=== PATIENT | male | born 1995 | race African-American/Black ===

== ENCOUNTER 2017-03-12 08:32 | Emergency (ER) | payer SELFPAY ==
[~2017-03-12] VITALS: Ht 167.6 cm; Wt 75.0 kg
[~2017-03-12 08:32] MED LIST: IBUP600 PO
[2017-03-12 08:34] VITALS: BP 146/94; PULSE 82; RESP 16; TEMP 97.6; O2SAT 98
[2017-03-12] MEDS ORDERED: SODIUM CHLORIDE 0.9% FLUSH 10 ML FLUSH IVF PRN (09:00)
[2017-03-12] MEDS ORDERED: KETOROLAC TROMETHAMINE 60 MG/2 ML (IM) VIAL IM ONE (09:00)
[2017-03-12 09:16] VITALS: BP 131/72; PULSE 85
--- NOTE | 2017-03-12 09:28 | RADRPT ---
EXAM DATE/TIME: 03/12/2017 09:13 [place] COMPARISON: No previous studies available for comparison. INDICATIONS : Chest pain. MEDICAL HISTORY : None. SURGICAL HISTORY : None. ENCOUNTER: Initial ACUITY: 1 day PAIN SCORE: 5/10 LOCATION: Bilateral chest FINDINGS: PA and lateral views of the chest demonstrate the lungs to be symmetrically aerated without evidence of mass, infiltrate or effusion. The cardiomediastinal contours are unremarkable. Osseous structure s are intact. CONCLUSION: No acute disease. Say Knutson MD on March 12, 2017 at 9:23 Board Certified Radiologist. This report was verified electronically.
[2017-03-12 09:40] LABS: AUTOMATED NEUTROPHIL # 3.6 TH/MM3 (1.8-7.7); BASOPHIL # 0.1 TH/MM3 (0-0.2); BASOPHIL % 0.7 % (0.0-2.0); EOSINOPHIL # 0.2 TH/MM3 (0-0.4); HEMATOCRIT 43.8 % (39.0-51.0); HEMO FLAGS DIFF FINAL; LYMPH % 34.2 % (9.0-44.0); LYMPHOCYTE # 2.5 TH/MM3 (1.0-4.8); MEAN CELL VOLUME 86.4 FL (80.0-100.0); MEAN CORPUSCULAR HEMOGLOBIN 29.5 PG (27.0-34.0); MEAN CORPUSCULAR HGB CONC 34.1 % (32.0-36.0); MONO % 12.9 % (0.0-8.0); NEUT % 49.2 % (16.0-70.0); PLATELET COUNT 259 TH/MM3 (150-450); RED BLOOD COUNT 5.07 MIL/MM3 (4.50-5.90); RED CELL DISTRIBUTION WIDTH 12.3 % (11.6-17.2); WHITE BLOOD COUNT 7.3 TH/MM3 (4.0-11.0)
[2017-03-12 09:54] LABS: APTT (PATIENT) 26.5 SEC (24.3-30.1); PROTHROMBIN TIME - PATIENT 10.8 SEC (9.8-11.6)
[2017-03-12 10:02] LABS: ALT (GPT) 25 U/L (12-78); ANION GAP 7 MEQ/L (5-15); AST (GOT) 20 U/L (15-37); BICARBONATE 26.3 MEQ/L (21.0-32.0); BLOOD UREA NITROGEN 14 MG/DL (7-18); CHLORIDE 107 MEQ/L (98-107); GLOMERULAR FILTRATION RATE 94 ML/MIN (>89); SODIUM (NA) 140 MEQ/L (136-145)
[2017-03-12 10:06] LABS: ALKALINE PHOSPHATASE 80 U/L (45-117); TOTAL BILIRUBIN ADULT 0.4 MG/DL (0.2-1.0)
--- NOTE | 2017-03-12 10:28 | PD ---
HPI Chief Complaint: Chest Pain Time Seen by Provider: 08:52 Travel History International Travel<30 days: No Contact w/Intl Traveler<30days: No Traveled to known affect area: No History of Present Illness HPI Patient is a 22-year-old male comes in complaining of chest pain. He says the pain is mostly on the right side, and feels like a muscle strain. He says the pain is worse with movement. He denies any shortness of breath, nausea, fever, chills. He denies cough or cold. 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 He says he has had this once before in the past and it resolved. He says he was told it was a muscle issue. He denies any cocaine or stimulant use. He denies family history of early cardiac . PFSH Past Medical History Developmental Delay: No Diminished Hearing: No Immunizations Current: Yes Tetanus Vaccination: < 5 Years Influenza Vaccination: Yes Past Surgical History Endocrine Surgery: Yes Social History Alcohol Use: No Tobacco Use: No Substance Use: No Allergies-Medications (Allergen,Severity, Reaction): Coded Allergies: No Known Allergies (Verified , 05/19/14) Reported Meds & Prescriptions Reported Meds & Active Scripts Active Motrin 600 Mg Tab (Ibuprofen) 600 Mg Tab 600 Mg PO Q6H PRN 7 Days Review of Systems Except as stated in HPI: all other systems reviewed are Neg General / Constitutional: No: Fever, Chills Eyes: No: Blurred Vision HENT: No: Headaches, Lightheadedness Cardiovascular: Positive: Chest Pain or Discomfort Respiratory: No: Cough, Shortness of Breath Gastrointestinal: No: Nausea, Vomiting Musculoskeletal: Positive: Pain, No: Myalgias Skin: No Rash, No Change in Pigmentation Neurologic: No: Weakness, Dizziness Physical Exam Narrative GENERAL: Awake and alert, in no acute distress. SKIN: Focused skin assessment warm/dry. HEAD: Atraumatic. Normocephalic. EYES: Pupils equal and round. No scleral icterus. EOMI ENT: Mucous membranes pink and moist. NECK: Trachea midline. No JVD. CARDIOVASCULAR: Regular rate and rhythm. No murmur appreciated. No chest wall tenderness. RESPIRATORY: No accessory muscle use. Clear to auscultation. Breath sounds equal bilaterally. GASTROINTESTINAL: Abdomen soft, non-tender, nondistended. MUSCULOSKELETAL: No obvious deformities. No clubbing. No cyanosis. No edema. NEUROLOGICAL: Awake and alert. No obvious cranial nerve deficits. Motor grossly within normal limits. Normal speech. PSYCHIATRIC: Appropriate mood and affect; insight and judgment normal. Data Data Last Documented VS Vital Signs Date Time Temp Pulse Resp B/P Pulse Ox O2 Delivery O2 Flow Rate FiO2 03/12/17 10:41 84 14 128/71 99 03/12/17 09:16 Room Air 03/12/17 08:34 97.6 Orders Electrocardiogram (03/12/17 08:59) Basic Metabolic Panel (Bmp) (03/12/17 08:59) Complete Blood Count With Diff (03/12/17 08:59) Comprehensive Metabolic Panel (03/12/17 08:59) D-Dimer (03/12/17 08:59) Prothrombin Time / Inr (Pt) (03/12/17 08:59) Act Partial Throm Time (Ptt) (03/12/17 08:59) Troponin I (03/12/17 08:59) Ecg Monitoring (03/12/17 08:59) Bilateral Bp Monitoring (03/12/17 08:59) Iv Access Insert/Monitor (03/12/17 08:59) Oximetry (03/12/17 08:59) Sodium Chloride 0.9% Flush (Ns Flush) (03/12/17 09:00) Chest, Pa & Lat (03/12/17 08:59) Ketorolac Inj (Toradol Inj) (03/12/17 09:00) Labs Laboratory Tests Test 03/12/17 09:10 White Blood Count 7.3 TH/MM3 Red Blood Count 5.07 MIL/MM3 Hemoglobin 14.9 GM/DL Hematocrit 43.8 % Mean Corpuscular Volume 86.4 FL Mean Corpuscular Hemoglobin 29.5 PG Mean Corpuscular Hemoglobin 34.1 % Concent Red Cell Distribution Width 12.3 % Platelet Count 259 TH/MM3 Mean Platelet Volume 8.0 FL Neutrophils (%) (Auto) 49.2 % Lymphocytes (%) (Auto) 34.2 % Monocytes (%) (Auto) 12.9 % Eosinophils (%) (Auto) 3.0 % Basophils (%) (Auto) 0.7 % Neutrophils # (Auto) 3.6 TH/MM3 Lymphocytes # (Auto) 2.5 TH/MM3 Monocytes # (Auto) 0.9 TH/MM3 Eosinophils # (Auto) 0.2 TH/MM3 Basophils # (Auto) 0.1 TH/MM3 CBC Comment DIFF FINAL Differential Comment Prothrombin Time 10.8 SEC Prothromb Time International 1.0 RATIO Ratio Activated Partial 26.5 SEC Thromboplast Time D-Dimer Quantitative (PE/DVT) 0.25 MG/L FEU Sodium Level 140 MEQ/L Potassium Level 4.0 MEQ/L Chloride Level 107 MEQ/L Carbon Dioxide Level 26.3 MEQ/L Anion Gap 7 MEQ/L Blood Urea Nitrogen 14 MG/DL Creatinine 1.18 MG/DL Estimat Glomerular Filtration 94 ML/MIN Rate Random Glucose 91 MG/DL Calcium Level 9.2 MG/DL Total Bilirubin 0.4 MG/DL Aspartate Amino Transf 20 U/L (AST/SGOT) Alanine Aminotransferase 25 U/L (ALT/SGPT) Alkaline Phosphatase 80 U/L Troponin I LESS THAN 0.02 NG/ML Total Protein 7.7 GM/DL Albumin 4.0 GM/DL [facility] Medical Decision Making Medical Screen Exam Complete: Yes Emergency Medical Condition: Yes Medical Record Reviewed: Yes Interpretation(s) ECG shows ECG shows sinus bradycardia at 56, no ST elevation or depression, normal intervals. Differential Diagnosis Costochondritis versus pneumothorax versus pneumonia versus PE Narrative Course Patient is a 22-year-old male comes in complaining of chest pain. Exam shows no acute abnormalities. IV established, labs sent. Troponin and d-dimer are negative. All other labs are within normal limits. ECG shows no signs of ischemia. Chest x-ray shows no acute abnormalities. Patient only has pain with movement. This is very likely musculoskeletal. Patient given Toradol for pain. Will be discharged, advised to take ibuprofen as needed for pain. Advised follow-up with a primary doctor. Her turn to the ED as needed for any worsening symptoms. Diagnosis Primary Impression: Chest wall pain Referrals: [facility] call for appointment Patient Instructions: Chest Wall Pain (ED), General Instructions Additional Instructions: Take Ibuprofen for pain. follow up with a primary care doctor. Return to the ED as needed for any worsening symptoms. Avoid smoking and any drug use. Disposition: 01 DISCHARGE HOME Condition: Stable Nivia Bowens MD March 12, 2017 10:28
[2017-03-12 10:41] VITALS: BP 128/71
--- NOTE | 2017-03-13 11:30 | EKG ---
Date Performed: 03/12/2017 Time Performed: 09:29:23 PTAGE: 22 years EKG: SINUS BRADYCARDIA MINIMAL VOLTAGE CRITERIA FOR LVH, CONSIDER NORMAL VARIANT BORDERLINE ECG NO PREVIOUS TRACING DOCTOR: Yuri Smith Interpretating Date/Time 03/13/2017 11:22:38
== END 2017-03-12 10:42 | disposition home or self-care (01) ==
LOC: NEPC 08:32
DX: R07.89 Other chest pain (principal)
CPT/HCPCS: 71020; 80053; 84484; 85025; 85379; 85610; 85730; 93005; 96372; 99284; J1885

== ENCOUNTER 2017-10-07 15:28 | Emergency (ER) | payer SELFPAY ==
[~2017-10-07] VITALS: Ht 167.6 cm; Wt 84.0 kg
[2017-10-07 15:34] VITALS: BP 136/88; PULSE 77; RESP 14; TEMP 98.6; O2SAT 99
[2017-10-07] MEDS ORDERED: PROPARACAINE HCL 0.5% OPHT SOLN 15 ML BTL LEFT EYE ONE (16:00)
--- NOTE | 2017-10-07 16:07 | PD ---
HPI Chief Complaint: Eye Problems/Injury Time Seen by Provider: 15:58 Travel History International Travel<30 days: No Contact w/Intl Traveler<30days: No Traveled to known affect area: No History of Present Illness HPI 22-year-old male presents emergency Department with complaint of left eye pain and watering since today after thinking he got something in his eye. 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 Doesn't know what he could've gotten in his eye. Denies change in vision. Denies photophobia. Pain is worse with eye movement. Denies fever, vomiting. Isn't taking any medications to alleviate symptoms. Has tried flushing his eye out in the shower with no relief of symptoms. Pain 8 /10. No known allergies. No significant medical history. No other medical complaints. No other modifying factors or associated signs and symptoms. PFSH Past Medical History Developmental Delay: No Diminished Hearing: No Immunizations Current: Yes Past Surgical History Endocrine Surgery: Yes Social History Alcohol Use: No Tobacco Use: No Substance Use: Yes (occ marijuana) Allergies-Medications (Allergen,Severity, Reaction): Coded Allergies: No Known Allergies (Verified Adverse Reaction, Unknown, 10/07/17) Reported Meds & Prescriptions Reported Meds & Active Scripts Active Review of Systems Except as stated in HPI: all other systems reviewed are Neg Physical Exam Narrative GENERAL: Well-nourished, well-developed patient, in no acute distress SKIN: Warm and dry. HEAD: Atraumatic. Normocephalic. EYES: Pupils equal and round at 3 mm with brisk reaction. PERRLA. EOMI. visual acuity 20/25 bilateral. [-] lid eversion with no foreign body noted. [- ] eye with scleral erythema and mild lid edema. No orbital tenderness, erythema or cellulitis. [-] eye with photophobia. No consensual photophobia. No scleral icterus. Clear drainage. Olguin lamp exam reveals [-] at the [-] position. ENT: Mucosa pink and moist. Airway patent. NECK: Trachea midline. CARDIOVASCULAR: Regular rate. RESPIRATORY: No accessory muscle use. NEUROLOGICAL: Awake and alert. Oriented 3. No obvious cranial nerve deficits. Motor grossly within normal limits. Normal speech. PSYCHIATRIC: Appropriate mood and affect; insight and judgment normal. Data Data Last Documented VS Vital Signs Date Time Temp Pulse Resp B/P (MAP) Pulse Ox O2 Delivery O2 Flow Rate FiO2 10/07/17 15:54 18 10/07/17 15:34 98.6 77 136/88 (104) 99 Orders Orders Proparacaine 0.5% Opth Soln (Alcaine 0.5 (10/07/17 16:00) MDM Medical Decision Making Medical Screen Exam Complete: Yes Emergency Medical Condition: Yes Medical Record Reviewed: Yes Differential Diagnosis Corneal abrasion, eye foreign body, corneal ulceration Narrative Course 22-year-old male physical exam consistent with left eye corneal abrasion. Erythromycin and ibuprofen prescribed for home. Instructed patient to follow up with finished garment inspector. Mandatory outpatient referral ordered. Instructed patient to follow up with primary care provider. Patient verbalizes understanding and agreement with treatment plan. Patient is medically cleared and stable for discharge. Discussed reasons to return to the emergency department. Patient agrees with treatment plan. The patients vital signs are stable and the patient is stable for outpatient follow-up and treatment. Patient discharged home, stable and in no acute distress. Diagnosis Primary Impression: Left corneal abrasion Qualified Codes: S05.02XA - Injury of conjunctiva and corneal abrasion without foreign body, left eye, initial encounter Referrals: [facility] Primary Care Physician Patient Instructions: Corneal Abrasion (ED), General Instructions Additional Instructions: Ibuprofen or Tylenol as directed and as needed to reduce pain Do not patch the eye Do not rub the eye Refrigerated eye drops as needed to reduce pain Cool compresses to the eye as needed to reduce pain Follow-up with ophthalmology Primary care provider Return to the emergency department immediately with worsening of symptoms Med/Other Pt SpecificInfo: Prescription(s) given Scripts Ibuprofen (Ibuprofen) 800 Mg Tab 800 MG PO Q6HR Y for PAIN, #30 TAB 0 Refills Prov: Meredith Galarza 10/07/17 Erythromycin Opth Oint (Erythromycin Opth Oint) 5 Mg/Gm Oint 1 APPLIC LEFT EYE QID for Infection for 7 Days, #1 TUBE 0 Refills Prov: Meredith GalarzaP 10/07/17 Disposition: 01 DISCHARGE HOME Condition: Stable Meredith Galarza Oct 07, 2017 16:07
[2017-10-07] MEDS ORDERED: IBUP1TAB7 PO (16:21)
[2017-10-07] MEDS ORDERED: ERYTOIN10 LEFT EYE (16:21)
== END 2017-10-07 16:45 | disposition home or self-care (01) ==
LOC: NEPD 15:28
DX: S05.02XA Injury of conjunctiva and corneal abrasion without foreign body, left eye, initial encounter (principal); X58.XXXA Exposure to other specified factors, initial encounter; Y99.0 Civilian activity done for income or pay
CPT/HCPCS: 99283

== ENCOUNTER 2018-04-07 16:06 | Emergency (ER) | payer SELFPAY ==
[~2018-04-07] VITALS: Ht 167.6 cm; Wt 80.0 kg
[~2018-04-07 16:06] MED LIST changes: +ERYTOIN10 LEFT EYE; +IBUP1TAB7 PO; -IBUP600 PO
[2018-04-07 16:09] VITALS: BP 134/86; PULSE 73; RESP 16; TEMP 98.8; O2SAT 99
--- NOTE | 2018-04-07 17:19 | PD ---
HPI Chief Complaint: ENT Complaint Time Seen by Provider: 16:32 Travel History International Travel<30 days: No Contact w/Intl Traveler<30days: No Traveled to known affect area: No History of Present Illness HPI 23-year-old male presents to emergency department with complaint of sore throat 3 days. Denies lump in throat, difficulty swallowing, unusual drooling. Reports painful swallowing. Denies fever, vomiting, headache, abdominal pain. Reports nasal congestion. Denies cough. No others with similar symptoms. Has been using throat lozenges and throat spray for symptom management. Symptoms are mild to moderate in severity. Aggravated with swallowing. No primary care provider. No known allergies. Denies significant past medical history. Has no other medical complaints. No other modifying factors or associated signs and symptoms. PFSH Past Medical History Developmental Delay: No Diminished Hearing: No Immunizations Current: Yes Past Surgical History Endocrine Surgery: Yes Social History Alcohol Use: No Tobacco Use: No Substance Use: Yes (occ marijuana) Allergies-Medications (Allergen,Severity, Reaction): Coded Allergies: No Known Allergies (Verified Adverse Reaction, Unknown, 10/07/17) Reported Meds & Prescriptions Reported Meds & Active Scripts Active Amoxicillin 500 Mg Cap 500 Mg PO BID 10 Days Ibuprofen 800 Mg Tab 800 Mg PO Q6HR PRN Erythromycin Opth Oint 5 Mg/Gm Oint 1 Applic LEFT EYE QID 7 Days Review of Systems Except as stated in HPI: all other systems reviewed are Neg Physical Exam Narrative GENERAL: Well-nourished, well-developed patient, in no acute distress SKIN: Warm and dry. No rash. HEAD: Atraumatic. Normocephalic. EYES: Pupils equal and round at 3 mm with brisk reaction. No scleral icterus. No injection or drainage. PERRLA. ENT: Mucosa pink and dry. Pharynx with 2+ tonsils; with erythema, exudate, and edema. No Uvular edema. No uvular, palatal, or tonsillar deviation. Airway patent. EARS: Bilateral pinnae and external canals appear within normal limits. Bilateral tympanic membranes without erythema, dullness or perforation.. NECK: Trachea midline. Anterior cervical lymphadenopathy and tenderness. CARDIOVASCULAR: Regular rate RESPIRATORY: No accessory muscle use. GASTROINTESTINAL: Flat. MUSCULOSKELETAL: No obvious deformities. No clubbing. No cyanosis. No edema. NEUROLOGICAL: Awake and alert. Oriented 3. No obvious cranial nerve deficits. Motor grossly within normal limits. Normal speech. Moves all extremities. PSYCHIATRIC: Appropriate mood and affect; insight and judgment normal. Data Data Last Documented VS Vital Signs Date Time Temp Pulse Resp B/P (MAP) Pulse Ox O2 Delivery O2 Flow Rate FiO2 04/07/18 16:09 98.8 73 16 134/86 (102) 99 Orders Orders Group A Rapid Strep Screen (04/07/18 16:33) Strep Culture (Group A) (04/07/18 16:38) Ed Discharge Order (04/07/18 17:22) MDM Medical Decision Making Medical Screen Exam Complete: Yes Emergency Medical Condition: Yes Medical Record Reviewed: Yes Differential Diagnosis Exudative pharyngitis, viral pharyngitis, strep pharyngitis, tonsillitis, less likely peritonsillar abscess Narrative Course 23-year-old male physical exam consistent with exudative pharyngitis. Rapid strep ordered and pending. Amoxicillin prescribed for home. Instructed patient to follow up with primary care provider. Patient verbalizes understanding and agreement with treatment plan. Patient is medically cleared and stable for discharge. Discussed reasons to return to the emergency department. Patient agrees with treatment plan. The patients vital signs are stable and the patient is stable for outpatient follow-up and treatment. Patient discharged home, stable and in no acute distress. Diagnosis Primary Impression: Exudative pharyngitis Referrals: [facility] Primary Care Physician Patient Instructions: General Instructions, Pharyngitis (ED) Additional Instructions: Take Antibiotics as prescribed and complete full course of antibiotics Throw away and change your toothbrush 24 hours after starting antibiotics Get plenty of sleep/rest Rest your voice Drink plenty of fluids to prevent dehydration Use warm saltwater gargles to soothe throat pain Use an air humidifier/turn off ceiling fans Use throat lozenges as needed for sore throat Use ibuprofen or acetaminophen as needed to relieve pain and fever Follow-up with your primary care provider within 2-4 days Return immediately to the emergency department with worsening of symptoms Med/Other Pt SpecificInfo: Prescription(s) given Scripts Amoxicillin (Amoxicillin) 500 Mg Cap 500 MG PO BID for Infection for 10 Days, #20 CAP 0 Refills Prov: Meredith Galarza 04/07/18 Disposition: 01 DISCHARGE HOME Condition: Stable Meredith Galarza Apr 07, 2018 17:19
[2018-04-07] MEDS ORDERED: AMOX500C PO (17:22)
== END 2018-04-07 17:40 | disposition home or self-care (01) ==
LOC: NEPD 16:06
DX: J02.9 Acute pharyngitis, unspecified (principal); F12.90 Cannabis use, unspecified, uncomplicated
CPT/HCPCS: 86403; 87081; 87880; 99283